=== PATIENT | female | born 1930 | race Caucasian/White ===

== ENCOUNTER → 2017-07-27 | Outpatient (CLI) | payer MEDICARE ==
[2015-04-05 11:00] VITALS: BP 91/42
[~2017-07-27] MED LIST: HYDR-2758 PO; LEVO75TA5 PO; QUIN20TA17 PO; SOTA80TA48 PO; TRIA1CAP3 PO
--- NOTE | 2017-07-27 13:13 | KCIC ---
CHEST PA LATERAL History: Bronchitis. Coughing. Fever.. Comparison: March 27, 2016. Findings: Cardiomediastinal silhouette is within normal limits. Question minimal increased opacity in the left lung base. No dense airspace consolidation. No pneumothorax identified. No evidence of pleural effusion. Impression: Question minimal left lower lobe infiltrate. Electronically signed by: Adan Nolasco MD (07/27/2017 1:10 PM) [facility]-[id number]
== END | disposition home or self-care (01) ==
LOC: KCIC 12:33
PROVIDERS: ATTEND Family Medicine
DX: J40 Bronchitis, not specified as acute or chronic (principal)
CPT/HCPCS: 71020

== ENCOUNTER → 2018-07-18 | Outpatient (CLI) | payer MEDICARE ==
[2015-04-05 11:00] VITALS: BP 91/42
--- NOTE | 2018-07-18 12:04 | KCIC ---
CHEST PA LATERAL dated 07/18/2018 12:00 AM. Comparison: 07/27/2017 Clinical Indication: Cough, PNEUMONIA Findings: PA and lateral views obtained. Heart and mediastinal contours are stable. Dual lead left subclavian pacer in place, unchanged. Lungs are clear without focal consolidation. Vascular interstitium within normal limits. No pleural effusion or pneumothorax. Impression: No acute radiographic abnormality. Stable findings compared to 07/27/2017. Electronically signed by: Adan Xie MD (07/18/2018 12:00 PM) [id number]
== END | disposition home or self-care (01) ==
LOC: KCIC 11:20
PROVIDERS: ATTEND Family Medicine
DX: R05 Cough (principal)
CPT/HCPCS: 71046

== ENCOUNTER 2018-07-20 11:45 | Emergency (ER) | payer MEDICARE ==
[~2018-07-20] VITALS: Ht 149.9 cm; Wt 49.9 kg
--- NOTE | 2018-07-20 12:17 | EKG ---
[facility] [address] [place] [address] Test Date: 2018-07-20 Test Time: 12:03:08 Pat Name: LONG LEVY Department: Room: Gender: F Garment Finisher: : 1930 Requested By: ANTHONY ROSA Order Number: [id number] Reading MD: Fredi Mandujano MD Measurements Intervals [place] Rate: 79 P: 26 SC: 246 QRS: -72 QRSD: 156 T: 73 QT: 438 QTc: 503 Interpretive Statements SINUS RHYTHM V-PACED BASELINE ARTIFACT Electronically Signed On 07-20-2018 17:58:48 COATING ENGINEER by Fredi Mandujano MD
--- NOTE | 2018-07-20 12:31 | PHYS DOC ---
Past Medical History Past Medical History: Heart Disease, Hypertension, Hypothyroid Past Surgical History: Appendectomy, , Pacemaker, Tonsillectomy, Other Additional Past Surgical Histo: back,L)shoulder Alcohol Use: None Drug Use: None Adult General Chief Complaint Chief Complaint: RAPID HEART RATE HPI HPI Patient is an 87-year-old female presents to the emergency department for evaluation. She states that she was started 2 days ago on a new blood pressure medication, hydralazine, in addition to her sotalol and quinapril. She also takes Synthroid. She states that she started taking medication yesterday and awakened this morning feeling flushed and expressing palpitations and she has had some light shortness of breath, and a mild nonproductive cough, and her PCP did a chest x-ray on Wednesday and they're still waiting for results. She was not put on antibiotics. She denies having any chest pain, numbness or weakness. She has not had any abdominal pain, nausea, vomiting, diarrhea. There are no alleviating or exacerbating factors to her symptoms. She has a [employer] pacemaker, which her family states was implanted secondary to syncopal episodes, and it will be interrogated. Review of Systems Review of Systems Constitutional: Denies fever or chills and reports general malaise. [] Eyes: Denies change in visual acuity, redness, or eye pain [] HENT: Denies nasal congestion or sore throat [] Respiratory: Reports a mild shortness of breath, denies pleuritic pain. Reports nonproductive cough.[] Cardiovascular: No additional information not addressed in HPI [] GI: Denies abdominal pain, nausea, vomiting, bloody stools or diarrhea [] : Denies dysuria or hematuria [] Musculoskeletal: Denies back pain or joint pain [] Integument: Denies rash or skin lesions [] Neurologic: Denies headache, focal weakness or sensory changes [] Endocrine: Denies polyuria or polydipsia [] All other systems were reviewed and found to be within normal limits, except as documented in this note. Current Medications Current Medications Current Medications Medications (Trade) Dose Ordered Sig/Tad Start Time Stop Time Status Last Admin Dose Admin Albuterol/ Ipratropium (Duoneb) 3 ml 1X ONCE 07/20/18 13:15 07/20/18 13:16 DC 07/20/18 13:30 3 ML Allergies Allergies Allergies Coded Allergies Type Severity Reaction Last Updated Verified Sulfa (Sulfonamide Antibiotics) Allergy Intermediate 04/04/15 No codeine Allergy Intermediate 04/04/15 No Physical Exam Physical Exam PHYSICAL EXAM: CONSTITUTIONAL: Well developed, well nourished HEAD: normocephalic, atraumatic EENT: PERRL, EOMI. Conjunctivae normal color, sclerae non-icteric; moist mucous membranes. NECK: Supple, non-tender; no meningismus. LUNGS: There are scattered inspiratory and expiratory wheezes, breathing even and unlabored. Normal air movement. HEART: Regular rate and rhythm, no murmur CHEST: No deformity; non-tender ABDOMEN: The abdomen is soft, and non-tender, no masses or bruits. EXTREM: Normal ROM; no deformity, no calf tenderness. Normal pulses palpable in all extremities. There is no pedal edema. SKIN: No rash; no diaphoresis NEURO: Alert; normal speech and cognition; CN's grossly intact; strength grossly intact without focal deficit. BACK: No CVA TTP. Current Patient Data Vital Signs Vital Signs Date Time Temp Pulse Resp B/P (MAP) Pulse Ox O2 Delivery O2 Flow Rate FiO2 07/20/18 14:05 63 17 193/76 (115) 96 Room Air Lab Values Laboratory Tests Test 07/20/18 13:05 White Blood Count 7.9 x10^3/uL (4.0-11.0) Red Blood Count 4.18 x10^6/uL (3.50-5.40) Hemoglobin 14.3 g/dL (12.0-15.5) Hematocrit 41.9 % (36.0-47.0) Mean Corpuscular Volume 100 fL (79-100) Mean Corpuscular Hemoglobin 34 pg (25-35) Mean Corpuscular Hemoglobin Concent 34 g/dL (31-37) Red Cell Distribution Width 14.5 % (11.5-14.5) Platelet Count 315 x10^3/uL (140-400) Neutrophils (%) (Auto) 54 % (31-73) Lymphocytes (%) (Auto) 34 % (24-48) Monocytes (%) (Auto) 8 % (0-9) Eosinophils (%) (Auto) 3 % (0-3) Basophils (%) (Auto) 1 % (0-3) Neutrophils # (Auto) 4.2 x10^3uL (1.8-7.7) Lymphocytes # (Auto) 2.7 x10^3/uL (1.0-4.8) Monocytes # (Auto) 0.6 x10^3/uL (0.0-1.1) Eosinophils # (Auto) 0.2 x10^3/uL (0.0-0.7) Basophils # (Auto) 0.1 x10^3/uL (0.0-0.2) Sodium Level 139 mmol/L (136-145) Potassium Level 4.7 mmol/L (3.5-5.1) Chloride Level 101 mmol/L (98-107) Carbon Dioxide Level 27 mmol/L (21-32) Anion Gap 11 (6-14) Blood Urea Nitrogen 24 mg/dL (7-20) H Creatinine 0.9 mg/dL (0.6-1.0) Estimated GFR (Cockcroft-Gault) 59.0 BUN/Creatinine Ratio 27 (6-20) H Glucose Level 106 mg/dL (70-99) H Calcium Level 9.5 mg/dL (8.5-10.1) Magnesium Level 2.1 mg/dL (1.8-2.4) Total Bilirubin 0.5 mg/dL (0.2-1.0) Aspartate Amino Transferase (AST) 22 U/L (15-37) Alanine Aminotransferase (ALT) 22 U/L (14-59) Alkaline Phosphatase 119 U/L (46-116) H Troponin I Quantitative < 0.017 ng/mL (0.000-0.055) AL-Wej-G-Type Natriuretic Peptide 1356 pg/mL (0-449) H Total Protein 7.9 g/dL (6.4-8.2) Albumin 3.6 g/dL (3.4-5.0) Albumin/Globulin Ratio 0.8 (1.0-1.7) L Thyroid Stimulating Hormone (TSH) 3.871 uIU/mL (0.358-3.74) H Free Thyroxine 1.29 ng/dL (0.76-1.46) Laboratory Tests 07/20/18 13:05 Laboratory Tests 07/20/18 13:05 EKG EKG [Ventricular paced rhythm at a rate of 79 bpm with left axis deviation and secondary QRS widening and repolarization abnormality without acute ischemic ST/ T changes.] Radiology/Procedures Radiology/Procedures [PROCEDURE: CHEST PA & LATERAL AP and Lateral Views of the Chest 07/20/2018 1:27 PM Indication: SOA, HTN Comparison: Chest radiograph July 18, 2018 Findings: Similar configuration of a dual-lead pacemaking device from a left subclavian approach. No pneumothorax or pleural effusion is seen. No new focal infiltrate is seen. Mild interstitial coarsening is again seen without evidence of significant central vascular congestion. Heart size is normal. Bony thorax is intact. IMPRESSION: Stable radiographic appearance of the chest.] Course & Med Decision Making Course & Med Decision Making Pertinent Labs and Imaging studies reviewed. (See chart for details) [2:35 PM: The patient's condition remained stable. Her blood pressure significantly improved and she is feeling much better at this time. I spoke with the patient's rayon tester, Dr. Multani. He has seen the patient multiple times in the past for palpitations, without any abnormality found. He states the patient does have a lot of anxiety. I discussed the patient closely follow-up with her primary care provider for further management of her hypertension, and adjustment of her blood pressure medication and instructed her not to take her hydralazine before speaking with her primary care provider about continuing this medication or changing to a new medication.] Her pacemaker was interrogated, there were no tachycardia dysrhythmias noted today. Dragon Disclaimer Dragon Disclaimer This electronic medical record was generated, in whole or in part, using a voice recognition dictation system. Departure Departure Impression: Primary Impression: Palpitations Additional Impression: Hypertension Disposition: 01 HOME, SELF-CARE Condition: STABLE Referrals: Rubens PIKE MD (PCP) NATHANAEL MULTANI MD Patient Instructions: Hypertension, Palpitations Problem Qualifiers ANTHONY ROSA MD Jul 20, 2018 12:31
--- NOTE | 2018-07-20 12:51 | RAD ---
AP and Lateral Views of the Chest 07/20/2018 1:27 PM Indication: SOA, HTN Comparison: Chest radiograph July 18, 2018 Findings: Similar configuration of a dual-lead pacemaking device from a left subclavian approach. No pneumothorax or pleural effusion is seen. No new focal infiltrate is seen. Mild interstitial coarsening is again seen without evidence of significant central vascular congestion. Heart size is normal. Bony thorax is intact. IMPRESSION: Stable radiographic appearance of the chest. Electronically signed by: Adrian Kevin MD (07/20/2018 12:48 PM) [id number]
[2018-07-20 13:11] LABS: BASO # 0.1 x10^3/uL (0.0-0.2); BASO % 1 % (0-3); EOS # 0.2 x10^3/uL (0.0-0.7); EOS % 3 % (0-3); HEMATOCRIT 41.9 % (36.0-47.0); HEMOGLOBIN 14.3 g/dL (12.0-15.5); LYMPH # 2.7 x10^3/uL (1.0-4.8); LYMPH % 34 % (24-48); MEAN CORPUSCULAR HEMOGLOBIN 34 pg (25-35); MEAN CORPUSCULAR HGB CONC 34 g/dL (31-37); MEAN CORPUSCULAR VOLUME 100 fL (79-100); MONO # 0.6 x10^3/uL (0.0-1.1); MONO % 8 % (0-9); NEUT # 4.2 x10^3uL (1.8-7.7); NEUT % 54 % (31-73); PLATELET COUNT 315 x10^3/uL (140-400); RED BLOOD COUNT 4.18 x10^6/uL (3.50-5.40); RED CELL DISTRIBUTION WIDTH 14.5 % (11.5-14.5); WHITE BLOOD COUNT 7.9 x10^3/uL (4.0-11.0)
[2018-07-20] MEDS ORDERED: IPRATRPIUM/ALBUTEROL 0.5/2.5MG 3 ML NEBU. NEB ONE (13:15)
[2018-07-20 13:28] LABS: CALCIUM 9.5 mg/dL (8.5-10.1); CREATININE 0.9 mg/dL (0.6-1.0); POTASSIUM 4.7 mmol/L (3.5-5.1)
[2018-07-20 13:34] LABS: ALBUMIN 3.6 g/dL (3.4-5.0); ALBUMIN/GLOBULIN RATIO 0.8 (1.0-1.7); MAGNESIUM 2.1 mg/dL (1.8-2.4); TOTAL BILIRUBIN 0.5 mg/dL (0.2-1.0); TOTAL PROTEIN 7.9 g/dL (6.4-8.2)
[2018-07-20 13:42] LABS: FREE T4 1.29 ng/dL (0.76-1.46); THYROID STIM HORMONE (TSH) 3.871 uIU/mL (0.358-3.74)
[2018-07-20 14:35] VITALS: BP 186/85
== END 2018-07-20 14:57 | disposition home or self-care (01) ==
LOC: ER 11:45
DX: I11.9 Hypertensive heart disease without heart failure (principal); E03.9 Hypothyroidism, unspecified; R05 Cough; Z90.89 Acquired absence of other organs; Z95.0 Presence of cardiac pacemaker; Z88.2 Allergy status to sulfonamides; Z88.5 Allergy status to narcotic agent
CPT/HCPCS: 36415; 71046; 80053; 83735; 83880; 84439; 84443; 84484; 85025; 93005; 94640; 99285; J7620